=== PATIENT | female | born 1985 | race Caucasian/White ===

== ENCOUNTER 2023-05-12 15:39 | Emergency (ER) | payer OTHER, SELFPAY ==
[2023-05-12] VITALS (18 sets, daily range): BP systolic 127–151; BP diastolic 77–101; PULSE 67–117; RESP 10–18; TEMP 36.7; O2SAT 94–99
--- NOTE | 2023-05-12 15:43 | XRR_ITS ---
PROCEDURE INFORMATION: Exam: XR Chest Exam date and time: 05/12/2023 4:16 PM Age: 37 years old Clinical indication: Pain; Left-sided; Additional info: Cp TECHNIQUE: Imaging protocol: Radiologic exam of the chest. Views: 1 view. COMPARISON: No relevant prior studies available. FINDINGS: Lungs: Unremarkable. No consolidation. Pleural spaces: Unremarkable. No pleural effusion. No pneumothorax. Heart/Mediastinum: Unremarkable. No cardiomegaly. Bones/joints: Unremarkable. XR/XR chest 1V portable [id number] IMPRESSION: No acute findings.
--- NOTE | 2023-05-12 15:44 | ECG_ITS ---
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 Measurements Intervals [place] Rate: 102 P: 51 TN: 138 QRS: 8 QRSD: 86 T: 38 QT: 321 QTc: 418 Interpretive Statements SINUS TACHYCARDIA WITH OCCASIONAL VENTRICULAR PREMATURE COMPLEXES ABNORMAL RHYTHM ECG No previous ECG available for comparison Electronically Signed On 05-12-2023 23:56:31 CDT by Wale Hawkins M.D. [email or web address] [email or web address] International [email or web address] [place]/store/[id number] f
[2023-05-12 16:27] LABS: Basophils # 0.1 10^3/uL (0.0-0.1); Basophils % 0.6 %; Eosinophils # 0.3 10^3/uL (0.0-0.8); Eosinophils % 3.2 %; Hematocrit 40.2 % (36-47); Lymphocytes # 1.9 10^3/uL (0.8-4.8); Lymphocytes % 23.9 %; Mean Corpuscular HGB Conc 34.3 g/dL (30-55); Mean Corpuscular Hemoglobin 29.7 pg (27-33); Mean Corpuscular Volume 86.5 fl (85-98); Mean Platelet Volume 8.9 fL (7.4-10.4); Monocytes # 0.5 10^3/uL (0.2-0.9); Monocytes % 5.8 %; Neutrophils % 66.1 %; Nucleated Red Blood Cells % 0 %; Platelet Count 286 10^3/cmm (157-399); Red Blood Count 4.65 10^6/uL (3.85-5.65); Red Cell Distribution Width 12.3 % (12.1-15.1); White Blood Count 7.73 10^3/uL (3.29-11.43)
--- NOTE | 2023-05-12 16:40 | W.ED.CHESTPA ---
HPI - Chest Pain General: Chief Complaint: Chest Pain Stated Complaint: left side chest pains Time Seen by Provider: 05/12/23 16:07 Source: patient Mode of arrival: ambulatory Limitations: no limitations History of Present Illness: Patient is a 37-year-old female presents to ED today with complaint of left-sided chest pain. Patient states last week while at work she noticed an episode of chest pain accompanied by other symptoms that made her think she might be having a panic attack. She states since then she has noticed some brief intermittent episodes of chest pain. She states yesterday the pain seemed to be more persistent into today. She states that pain is worse with deep ventilation. Does not seem to be affected by exertion. She reports mild shortness of breath with exertion. Does not feel short of breath at rest. She arrives in no acute distress with stable vital signs. No risk factors for PE. Denies lower extremity swelling, calf pain, orthopnea, PND. She has no known cardiac or pulmonary issues. MD complaint: chest pain Onset (ago): day(s) Timing of current episode: episodic and constant Prior episodes: No Onset: during rest Pain location: left chest Pain radiation: none Severity: moderate Relieving factors: nothing Exacerbating factors: nothing Associated symptoms: Reports dyspnea; Deny abdominal pain, fever(s), nausea, palpitations, syncope or vomiting Treatment prior to arrival: none Risk Factors: Coronary artery disease risk factors: none Thoracic aortic dissection risk factors: none Review of Systems Const: Denies: fever(s), chills, body aches, fatigue or malaise Card: Reports: chest pain and dyspnea on exertion; Denies: palpitations, irregular heart rhythm, edema, swelling of feet/ankles, lightheadedness, syncope, pre-syncope, orthopnea, leg pain with exertion or acrocyanosis Resp: Reports: dyspnea and pain on inspiration; Denies: productive cough, non-productive cough, wheezing, stridor, change in phlegm color, hemoptysis or chest congestion GI: Denies: abdominal pain, nausea, vomiting or diarrhea Musc: Denies: neck pain, back pain, extremity pain or joint pain Skin/Breast: Denies: rash Neuro: Denies: headache(s), numbness in extremities, weakness in extremities, sensory changes or dizziness [facility] ED Female Reproductive History: Date of last menstrual period: 05/10/23 Physical Exam Const: COMMON NORMALS: no acute distress, patient oriented x3, no limitations, alert and well nourished GENERAL APPEARANCE: cooperative NUTRITIONAL APPEARANCE: overweight ORIENTATION/CONSCIOUSNESS: Yes awake, Yes oriented to person, Yes oriented to place and Yes oriented to time HENMT: COMMON NORMALS: normocephalic and atraumatic HEAD & SCALP: normal to inspection, normocephalic and atraumatic Chest: COMMONS NORMALS: normal inspection of the chest OTHER: TTP L anterior chest Resp: COMMON NORMALS: normal respiratory effort and clear to auscultation bilaterally AUSCULTATION: clear to auscultation bilaterally Cardio: COMMON NORMALS: regular rate and regular rhythm RATE: regular rate RHYTHM: regular rhythm : COMMON NORMALS: Yes no CVA tenderness BLADDER/KIDNEY EXAM: Yes no CVA tenderness Back/Pelvis: COMMON NORMALS: no CVA tenderness Extremity: COMMON NORMALS: capillary refill normal, no clubbing, cyanosis or edema, no calf tenderness and no pedal edema GENERAL: Yes normal exam except as noted Neuro: JUAN ANTONIO COMA SCALE: document GCS findings Juan Antonio coma scale eye opening: Spontaneous Juan Antonio coma scale verbal response: Orientated Juan Antonio coma scale motor response: Obey commands [place] coma scale total score: 15 COMMON NORMALS: patient oriented x3, moves all extremities, no focal motor deficits and no sensory deficits noted SENSORIUM/ORIENTATION: Yes alert, Yes oriented to person, Yes oriented to place and Yes oriented to time Skin: COMMON NORMALS: no rashes or lesions noted GENERAL SKIN EXAM: no rashes or lesions noted Course Vital Signs: Vital signs: Vital Signs Temperature 98.1 F 05/12/23 15:45 Pulse Rate 70 05/12/23 17:25 Respiratory Rate 14 05/12/23 17:25 Blood Pressure 127/77 05/12/23 17:25 Pulse Oximetry 94 05/12/23 17:25 Oxygen Delivery Me thod Room Air 05/12/23 16:20 MDM - Chest Pain Medical Decision Making Patient appears in no acute distress. Vital signs are stable. Blood work including CBC, CMP, troponin, D-dimer, EKG, and CXR are all unremarkable. Patient stable for discharge. Return ED precautions given. Otherwise she can follow-up with primary care. Medical Records I reviewed the patient's medical records. Lab Data I reviewed the patient's lab results. 05/12/23 16:11 05/12/23 16:11 Radiology Impressions Chest X-Ray 05/12/23 15:43 IMPRESSION: No acute findings. Laboratory Results WBC 7.73 10^3/uL (3.29-11.43) 05/12/23 16:11 RBC 4.65 10^6/uL (3.85-5.65) 05/12/23 16:11 Hgb 13.80 g/dL (11.27-16.99) 05/12/23 16:11 Hct 40.2 % (36-47) 05/12/23 16:11 MCV 86.5 fl (85-98) 05/12/23 16:11 MCH 29.7 pg (27-33) 05/12/23 16:11 MCHC 34.3 g/dL (30-55) 05/12/23 16:11 RDW 12.3 % (12.1-15.1) 05/12/23 16:11 Plt Count 286 10^3/cmm (157-399) 05/12/23 16:11 MPV 8.9 fL (7.4-10.4) 05/12/23 16:11 Neut % (Auto) 66.1 % 05/12/23 16:11 Lymph % (Auto) 23.9 % 05/12/23 16:11 [place] % (Auto) 5.8 % 05/12/23 16:11 Eos % (Auto) 3.2 % 05/12/23 16:11 Baso % (Auto) 0.6 % 05/12/23 16:11 Neut # (Auto) 5.10 10^3/uL (1.8-7.7) 05/12/23 16:11 Lymph # (Auto) 1.9 10^3/uL (0.8-4.8) 05/12/23 16:11 [place] # (Auto) 0.5 10^3/uL (0.2-0.9) 05/12/23 16:11 Eos # (Auto) 0.3 10^3/uL (0.0-0.8) 05/12/23 16:11 Baso # (Auto) 0.1 10^3/uL (0.0-0.1) 05/12/23 16:11 Nucleated RBC % (auto) 0 % 05/12/23 16:11 Nucleated RBCs # 0.0 /100WBC 05/12/23 16:11 D-Dimer 0.28 ug/mLFEU (0-0.59) 05/12/23 16:11 Sodium 144 mmol/L (136-145) 05/12/23 16:11 Potassium 3.8 mmol/L (3.5-5.1) 05/12/23 16:11 Chloride 109 mmol/L (98-107) H 05/12/23 16:11 Carbon Dioxide 22 mmol/L (22-29) 05/12/23 16:11 Anion Gap 16.8 (5-19) 05/12/23 16:11 BUN 14 mg/dL (6-20) 05/12/23 16:11 Creatinine 0.5 mg/dL (0.5-0.9) 05/12/23 16:11 GFR Calculation 140.4 mL/min (90-130) H 05/12/23 16:11 Glucose 106 mg/dL (65-115) 05/12/23 16:11 Calculated Osmolality 299 mOsm/kg (285-295) H 05/12/23 16:11 Calcium 9.2 mg/dL (8.5-10.5) 05/12/23 16:11 Total Bilirubin 0.2 mg/dL (0.15-1.2) 05/12/23 16:11 AST 16 U/L (0-32) 05/12/23 16:11 ALT 25 U/L (0-33) 05/12/23 16:11 Alkaline Phosphatase 64 U/L (35-105) 05/12/23 16:11 Troponin T Baseline < 6 ng/L (0-10) 05/12/23 16:11 Total Protein 6.5 g/dL (6.6-8.7) L 05/12/23 16:11 Albumin 4.2 g/dL (3.5-5.2) 05/12/23 16:11 Globulin 2.3 g/dL (1.3-4.6) 05/12/23 16:11 All radiology interpretation(s) finalized by discharge Discharge Plan Discharge Patient Disposition: Home Clinical Impression: Non-cardiac chest pain Condition: Stable Prescriptions: No Action acetaminophen 325 mg Tablet 650 mg PO QID PRN (Reason: Pain) Discharge Orders: Discharge ED (Routine); Ordered 05/12/23 Ordered By: Lamar Tovar Patient Instructions: Noncardiac Chest Pain (ED) Coding Level of Care Code ED Sales Representative Trainee for Michelle Boogie
[2023-05-12 16:51] LABS: Troponin(5th) Baseline < 6 ng/L (0-10)
[2023-05-12 16:54] LABS: Alanine Aminotransferase 25 U/L (0-33); Albumin Level 4.2 g/dL (3.5-5.2); Alkaline Phosphatase 64 U/L (35-105); Anion Gap 16.8 (5-19); Aspartate Amino Transferase 16 U/L (0-32); Blood Urea Nitrogen 14 mg/dL (6-20); Calcium 9.2 mg/dL (8.5-10.5); Carbon Dioxide 22 mmol/L (22-29); Chloride 109 mmol/L (98-107); Globulin 2.3 g/dL (1.3-4.6); Glomerular Filtration Rate 140.4 mL/min (90-130); Glucose 106 mg/dL (65-115); Osmolality Calculated 299 mOsm/kg (285-295); Potassium 3.8 mmol/L (3.5-5.1); Sodium 144 mmol/L (136-145); Total Bilirubin 0.2 mg/dL (0.15-1.2); Total Protein 6.5 g/dL (6.6-8.7)
[2023-05-12 17:25] LABS: D Dimer 0.28 ug/mLFEU (0-0.59)
== END 2023-05-12 17:56 | disposition home or self-care (01) ==
PROVIDERS: Emergency Medicine; Emergency Provider Physician Assistant
DX: R07.89 Other chest pain (principal)
CPT/HCPCS: 36415; 71045; 80053; 84484; 85025; 85378; 93005; 99285

== ENCOUNTER 2024-07-14 02:27 | Emergency (ER) | payer MEDICAID, SELFPAY ==
[2024-07-14 02:49] VITALS: BP 142/82; PULSE 67; RESP 16; TEMP 36.8; O2SAT 100; BMI 45.1
[2024-07-14 04:41] LABS: Basophils # 0.1 10^3/uL (0.0-0.1); Basophils % 0.7 %; Eosinophils # 0.6 10^3/uL (0.0-0.8); Eosinophils % 9.3 %; Hematocrit 36.7 % (36-47); Lymphocytes # 2.6 10^3/uL (0.8-4.8); Lymphocytes % 37.1 %; Mean Corpuscular HGB Conc 34.3 g/dL (30-55); Mean Corpuscular Hemoglobin 29.8 pg (27-33); Mean Corpuscular Volume 86.8 fl (85-98); Monocytes # 0.5 10^3/uL (0.2-0.9); Monocytes % 6.8 %; Neutrophils # 3.15 10^3/uL (1.8-7.7); Neutrophils % 45.7 %; Nucleated Red Blood Cells % 0 %; Platelet Count 242 10^3/cmm (157-399); Red Blood Count 4.23 10^6/uL (3.85-5.65); Red Cell Distribution Width 12.6 % (12.1-15.1)
[2024-07-14 05:00] LABS: Alanine Aminotransferase 25 U/L (0-33); Albumin Level 4.3 g/dL (3.5-5.2); Alkaline Phosphatase 51 U/L (35-105); Anion Gap 15.3 (5-19); Aspartate Amino Transferase 16 U/L (0-32); Blood Urea Nitrogen 10 mg/dL (6-20); Calcium 9.2 mg/dL (8.5-10.5); Carbon Dioxide 25 mmol/L (22-29); Chloride 103 mmol/L (98-107); Creatinine Clr Calc Pharmacy 164.8046; Globulin 2.4 g/dL (1.3-4.6); Glomerular Filtration Rate 113.1 mL/min (90-130); Glucose 89 mg/dL (65-115); Lipase 23 U/L (13-60); Osmolality Calculated 289 mOsm/kg (285-295); Potassium 3.3 mmol/L (3.5-5.1); Sodium 140 mmol/L (136-145); Total Bilirubin 0.5 mg/dL (0.15-1.2); Total Protein 6.7 g/dL (6.6-8.7)
--- NOTE | 2024-07-14 06:05 | ED_ITS ---
HPI - Abdominal Pain 2 General: Chief Complaint: Abdominal Pain Stated Complaint: believes pancretitis, abd pain nausea Time Seen by Provider: 07/14/24 06:04 History of Present Illness: 38-[facility] of [facility] pain. Patient reports show get epigastric abdominal pain radiating into her back and into her left upper quadrant intermittently. She has not noticed anything that exacerbates or relieves it. She describes an eating pattern of fasting for 24 hours then eating for 12 and then fasting again. She has not noticed that the pain is particularly tied in any given point in this fasting pattern does not recur reliably when she begins to eat again. She has not had any associated diarrhea. She has had some nausea and vomiting no hematemesis or coffee-ground emesis. She denies any hematochezia or melena. No constipation issues. She has previously had a cholecystectomy and a appendectomy. Cholecystectomy care after a difficult where she describes at 1 point having had gallstone pancreatitis. Interestingly at the time she is seen she is asymptomatic. Associated Symptoms: Reports nausea and vomiting; Denies chills, coffee ground emesis, dysuria, fever(s), hematochezia, hematemesis and melena Related Data Date of Last Menstrual Period: 06/30/24 Home Medications ?Medication ?Instructions ?Recorded ?Confirmed acetaminophen 325 mg tablet 650 mg PO QID PRN Pain 05/12/23 Previous Rx's ?Medication ?Instructions ?Recorded sulfamethoxazole 800 1 tab PO BID #6 tabs 5 mg-trimethoprim 160 mg tablet (Bactrim DS) Allergies Allergy/AdvReac Type Severity Reaction Status Date / Time No Known Allergies Allergy Verified 05/12/23 15:48 Review of Systems 2 Const: Denies: fever(s) or chills Card: Denies: chest pain Resp: Denies: dyspnea GI: Reports: abdominal pain, nausea and vomiting; Denies: hematemesis, coffee ground emesis, hematochezia or melena : Denies: dysuria, urinary frequency or urinary urgency Musc: Denies: neck pain or back pain Skin/Breast: Denies: rash PFSH ED 2 PFSH: Surgical History (Updated 07/14/24 @ 06:06 by Florentin Collins DO) History of appendectomy History of cholecystectomy Female Reproductive History: Date of last menstrual period: 06/30/24 Physical Exam 2 Const: COMMON NORMALS: no acute distress GENERAL APPEARANCE: cooperative and comfortable ORIENTATION/CONSCIOUSNESS: Yes awake, Yes oriented to person, Yes oriented to place and Yes oriented to time HENMT: COMMON NORMALS: normocephalic, atraumatic and hearing grossly normal bilaterally HEAD & SCALP: normocephalic and atraumatic Resp: COMMON NORMALS: normal respiratory effort, No retractions, No use of accessory muscles and clear to auscultation bilaterally AUSCULTATION: clear to auscultation bilaterally Cardio: COMMON NORMALS: regular rate, regular rhythm and No murmurs present (Cardio) RATE: regular rate RHYTHM: regular rhythm GI: COMMON NORMALS: Soft to palpation and No hepatosplenomegaly present A USCULTATION: Yes normoactive bowel sounds PALPATION: Yes Soft to palpation, No Tenderness to palpation present (GI), No Guarding due to palpation present (GI) and Yes No hepatosplenomegaly present Extremity: COMMON NORMALS: normal to inspection, capillary refill normal, no clubbing, cyanosis or edema, no calf tenderness and no pedal edema Neuro: SENSORIUM/ORIENTATION: Yes oriented to person, Yes oriented to place and Yes oriented to time Skin: COMMON NORMALS: no rashes or lesions noted GENERAL SKIN EXAM: no rashes or lesions noted Course 2 Vital Signs: Vital signs: Vital Signs Temperature 98.2 F 07/14/24 02:49 Pulse Rate 66 07/14/24 07:00 Respiratory Rate 16 07/14/24 02:49 Blood Pressure 133/69 07/14/24 07:00 Pulse Oximetry 99 07/14/24 07:00 Oxygen Delivery Me thod Room Air 07/14/24 02:49 MDM - Abdominal Pain Medical Decision Making Patient has no pain at this time exam is normal labs are essentially normal incidental finding of a mild cystitis do not believe that is connected to her original presenting problem. No evidence of pancreatitis. Possible she has sphincter of Oddi disease reflux esophageal esophagitis or biliary reflux are also possibilities. Per her history it is not associated with resuming eating after periods of fasting. She does not have any sign of bleedings and only gets a acute GI bleed of any sort. Discharge patient home she can use [id number] PPI or H2 lory. Will also treat her cystitis. Encouraged her to follow-up with her primary care doctor to seek further evaluation including possible endoscopy Lab Data 07/14/24 04:36 07/14/24 04:36 Labs/Radiology: Laboratory Results WBC 6.90 10^3/uL (3.29-11.43) 07/14/24 04:36 RBC 4.23 10^6/uL (3.85-5.65) 07/14/24 04:36 Hgb 12.60 g/dL (11.27-16.99) 07/14/24 04:36 Hct 36.7 % (36-47) 07/14/24 04:36 MCV 86.8 fl (85-98) 07/14/24 04:36 MCH 29.8 pg (27-33) 07/14/24 04:36 MCHC 34.3 g/dL (30-55) 07/14/24 04:36 RDW 12.6 % (12.1-15.1) 07/14/24 04:36 Plt Count 242 10^3/cmm (157-399) 07/14/24 04:36 MPV 9.0 fL (7.4-10.4) 07/14/24 04:36 Neut % (Auto) 45.7 % 07/14/24 04:36 Lymph % (Auto) 37.1 % 07/14/24 04:36 [place] % (Auto) 6.8 % 07/14/24 04:36 Eos % (Auto) 9.3 % 07/14/24 04:36 Baso % (Auto) 0.7 % 07/14/24 04:36 Neut # (Auto) 3.15 10^3/uL (1.8-7.7) 07/14/24 04:36 Lymph # (Auto) 2.6 10^3/uL (0.8-4.8) 07/14/24 04:36 [place] # (Auto) 0.5 10^3/uL (0.2-0.9) 07/14/24 04:36 Eos # (Auto) 0.6 10^3/uL (0.0-0.8) 07/14/24 04:36 Baso # (Auto) 0.1 10^3/uL (0.0-0.1) 07/14/24 04:36 Nucleated RBC % (auto) 0 % 07/14/24 04:36 Nucleated RBCs # 0.0 /100WBC 07/14/24 04:36 Sodium 140 mmol/L (136-145) 07/14/24 04:36 Potassium 3.3 mmol/L (3.5-5.1) L 07/14/24 04:36 Chloride 103 mmol/L (98-107) 07/14/24 04:36 Carbon Dioxide 25 mmol/L (22-29) 07/14/24 04:36 Anion Gap 15.3 (5-19) 07/14/24 04:36 BUN 10 mg/dL (6-20) 07/14/24 04:36 Creatinine 0.6 mg/dL (0.5-0.9) 07/14/24 04:36 GFR Calculation 113.1 mL/min (90-130) 07/14/24 04:36 Glucose 89 mg/dL (65-115) 07/14/24 04:36 Calculated Osmolality 289 mOsm/kg (285-295) 07/14/24 04:36 Calcium 9.2 mg/dL (8.5-10.5) 07/14/24 04:36 Total Bilirubin 0.5 mg/dL (0.15-1.2) 07/14/24 04:36 AST 16 U/L (0-32) 07/14/24 04:36 ALT 25 U/L (0-33) 07/14/24 04:36 Alkaline Phosphatase 51 U/L (35-105) 07/14/24 04:36 Total Protein 6.7 g/dL (6.6-8.7) 07/14/24 04:36 Albumin 4.3 g/dL (3.5-5.2) 07/14/24 04:36 Globulin 2.4 g/dL (1.3-4.6) 07/14/24 04:36 Lipase 23 U/L (13-60) 07/14/24 04:36 Urine Color Yellow (Yellow) 07/14/24 06:15 Urine Appearance Clear (CLEAR) 07/14/24 06:15 Urine pH 5.5 (5-7) 07/14/24 06:15 Ur Specific [place] 1.018 (1.005-1.030) 07/14/24 06:15 Urine Protein Negative (Negative) 07/14/24 06:15 Urine Glucose (UA) Negative (Normal) 07/14/24 06:15 Urine Ketones Negative (Negative) 07/14/24 06:15 Urine Blood Negative (Negative) 07/14/24 06:15 Urine Nitrate Negative (Negative) 07/14/24 06:15 Urine Bilirubin Negative (Negative) 07/14/24 06:15 Urine Urobilinogen 0.2 mg/dL (Negative) 07/14/24 06:15 Ur Leukocyte Esterase 1+ (Negative) A 07/14/24 06:15 Urine RBC 0-2 /hpf (0-2) 07/14/24 06:15 Urine WBC 6-10 /hpf (0-5) 07/14/24 06:15 Ur Squamous Epith Cells 0-5 /hpf (0-5) 07/14/24 06:15 Amorphous Sediment Not Reportable 07/14/24 06:15 Urine Bacteria Trace /hpf (NONE) 07/14/24 06:15 Hyaline Casts 0-4 /lpf H 07/14/24 06:15 No radiology studies performed this visit Discharge Plan Discharge Patient Disposition: Home Clinical Impression: Chronic abdominal pain, Cystitis Condition: Stable Prescriptions: New sulfamethoxazole-trimethoprim [Bactrim DS] 800-160 mg tablet 1 tab PO BID Qty: 6 0RF No Action acetaminophen 325 mg Tablet 650 mg PO QID PRN (Reason: Pain) Discharge Orders: Discharge ED (Routine); Ordered 07/14/24 Ordered By: Florentin Collins Discharge Diet: As Directed Discharge Activity: Increase activity as tolerated Patient Instructions: Abdominal Pain (ED), Opioid Safety, Pain Management Activity Restrictions/Additional Instructions: Thank you for choosing [facility] for your healthcare needs today. It is very important that you follow up as instructed or that you return to the Emergency Department should you have concerns or if your condition changes or worsens in any way. You were seen in the emergency room with complaint of intermittent chronic abdominal pain. The time you are seen you are not reporting any abdominal discomfort. Your exam was normal your laboratory test that showed a mild urinary tract infection but no other significant abnormalities your liver and pancreas enzymes kidney enzymes and electrolytes were all normal. Will treat your bladder infection with Bactrim 1 tablet twice a day for 3 days. Follow-up with your primary care doctor for further outpatient evaluation. Print Language: Gabonese Coding Level of Care Code ED Hadoop Developer for Michelle Boogie
[2024-07-14 06:31] LABS: Bilirubin Urine Negative (Negative); Blood Urine Negative (Negative); Glucose Urine UA Negative (Normal); Ketones Urine Negative (Negative); Leukocyte Esterase Urine 1+ (Negative); Nitrate Urine Negative (Negative); Protein Urine Negative (Negative); Specific Gravity, Urine 1.018 (1.005-1.030); Urine Appearance Clear (CLEAR); Urine Color Yellow (Yellow); Urobilinogen Urine 0.2 mg/dL (Negative); pH Urine 5.5 (5-7)
[2024-07-14 06:33] LABS: Add Urine Microscopic? YES; Bacteria Urine Trace /hpf; Hyaline Casts Urine 0-4 /lpf; RBC Urine 0-2 /hpf (0-2); Squamous Epithelial Cell Urine 0-5 /hpf (0-5)
[2024-07-14] MEDS: potassium chloride ER 20 mEq Tablet 40 MEQ PO (06:41)
[2024-07-14 07:00] VITALS: BP 133/69; PULSE 66; O2SAT 99
--- NOTE | 2024-07-14 07:03 | PC.NURSE ---
took over pt care from Patience Zambrano RN @ [phone]
[2024-07-14 07:20] VITALS: BP 132/74; PULSE 70; O2SAT 100
== END 2024-07-14 07:21 | disposition home or self-care (01) ==
PROVIDERS: Student in an Organized Health Care Education/Training Program; Emergency Provider Family Medicine
DX: R10.9 Unspecified abdominal pain (principal); N30.90 Cystitis, unspecified without hematuria
CPT/HCPCS: 36415; 80053; 81001; 83690; 85025; 99283; J9999